=== PATIENT | female | born 1955 | race Caucasian/White ===

== ENCOUNTER 2017-01-28 06:46 | Day surgery (SDC) | payer OTHER ==
--- NOTE | 2017-01-04 07:24 | HP ---
CC: Nadege Sarabia NP * PREOPERATIVE HISTORY AND PHYSICAL: DATE OF ADMISSION: This patient is scheduled for same-day surgery admission by Dr. Carias on 01/28/17. DATE OF PREOPERATIVE HISTORY AND PHYSICAL EXAMINATION: 01/03/17. ATTENDING SURGEON: Dr. Chayito Carias * (dictated by Patrica Ott NP). CHIEF COMPLAINT: Left breast abnormal imaging. HISTORY OF PRESENT ILLNESS: The patient is a 61-year-old female recently evaluated by Dr. Carias for abnormal left breast imaging. The patient was found to have dense breast and advised to alternate mammograms with MRI. She had an MRI in April 2016, which showed a left breast abnormality for which a sonogram was done. This was followed by a sono biopsy for an indeterminate nodule. The biopsy results showed a radial scar and this was thought to be discordant with imaging. Therefore, a followup ultrasound was advised. She had followup ultrasound at the end of November in conjunction with her annual mammogram. This showed stability of the lesion and it has been concluded to be benign. She presented to Dr. Carias for further evaluation and discussion of options. She denies any breast pain. Maternal grandmother had premenopausal breast cancer. Paternal grandmother had "female" cancer. Menarche was at age 10 and she had a hysterectomy at age 24 due to menorrhagia and a history of EHSAN exposure. First delivery at age 22. The patient took control pills for less than 10 years. She has never had radiation to the chest and she has never had a breast biopsy that showed atypical ductal hyperplasia and she did not breastfeed. Dr. Carias examined the patient and discussed the findings with her. The patient is distressed by the uncertainty of this lesion and would like to pursue surgery. Dr. Carias has recommended sonoguided needle localization excision of the left breast sonographic abnormality as a same-day surgery procedure. Dr. Carias discussed the nature of the surgical procedure, the rational for the procedure, the relevant risks and benefits and today I reviewed the typical postoperative care and recovery. The patient has had a chance to ask questions and stated that she understands the information and dissatisfied with the answers given to her questions. She will sign surgical consent on the day of surgery. PAST MEDICAL HISTORY: Generally healthy, no chronic conditions; she had a recent episode of atraumatic back pain and was seen in [facility] on 12/31/16 treated with pain medications and discharged. PAST SURGICAL HISTORY: Right hip replacement in May 2016, left meniscus repair in 2004, hysterectomy in 1980, and tonsillectomy in childhood. MEDICATIONS: 1. Flexeril as needed for back spasm. 2. Oxycodone. 3. Acetaminophen 5/325 and she takes one-half tablet as needed for back pain. ALLERGIES: PROHANCE which is a MRI contrast causes anaphylaxis. FAMILY HISTORY: No known anesthesia complications, bleeding tendencies, or clotting disorders. Maternal grandmother had premenopausal breast cancer. SOCIAL HISTORY: She is and is a retired dental hygienist. She is a nonsmoker, and denies use of alcohol or other substances. REVIEW OF SYSTEMS: Constitutional: No fevers, chills, excessive fatigue, or weight loss. Endocrine: No diabetes; she recently had a thyroid ultrasound ordered by Dr. Carias, which revealed a 4 mm cyst in the lower pole of the left lobe of the thyroid. Hematologic: No easy bruising or bleeding. No history of blood transfusions. No history of deep vein thrombosis or pulmonary embolism. Breasts: Abnormal left breast lesion. Respiratory: No dyspnea on exertion. No chronic cough. Cardiovascular: No anginal chest pain or palpitations. Gastrointestinal: No nausea, vomiting, diarrhea, or constipation. Genitourinary: No dysuria. No hematuria. Musculoskeletal: Recent episode of acute atraumatic back pain improving on muscle relaxers and opioids. Neurologic: No headache or blurred vision or focal weakness or numbness. General: She reports with previous anesthesia, she has been very slow to recover and has required reintubation. PHYSICAL EXAMINATION GENERAL SURVEY: The patient is a 61-year-old female well-developed, well- nourished, in no acute distress. VITAL SIGNS: Height 67 inches, weight 165 pounds, body mass index 25.8. Blood pressure 132/80, pulse 72 and regular, respiratory rate 16, temperature 97.2 tympanic. HEENT: Benign. NECK: Supple. No cervical lymphadenopathy. Thyroid somewhat nodular. No dominant nodules in either lobe. BREASTS: Pale white scar on the upper inner quadrant of the left breast. No palpable masses in either breast. Nipples erect, no nipple discharge. No palpable supraclavicular lymphadenopathy. No palpable axillary lymphadenopathy. LUNGS: Breath sounds bilaterally clear and equal. HEART: Regular rate and rhythm. No murmurs or rubs appreciated. ABDOMEN: Well-healed surgical scars. Active bowel sounds, soft, nontender throughout, nondistended. No obvious masses, organomegaly or evidence of umbilical hernia. PELVIC: Deferred. RECTAL: Deferred. EXTREMITIES: Warm without edema or skin ulcerations. NEUROLOGIC: Alert and oriented x3. Steady gait. SKIN: Warm, dry, and intact. IMPRESSION: Left breast abnormal imaging. PLAN: Same-day surgery admission to Dr. Carias's service on 01/28/17, for sonoguided excision of left breast sonographic abnormality. GOLDY OTT, SCREEN PRINT OPERATOR [id number]/[facility] #: [id number] MTDHazel
[~2017-01-28 06:46] MED LIST: Buffered Lidocaine 0.9% SYRIN* 5 ML/SYR SYRINGE INTRADERM ONE; Famotidine IV* 10 MG/ML 2 ML (20 mg) IV ONE
[2017-01-28] MEDS ORDERED: oxyCODONE/Acetamin 5/325 MG* TAB PO PRN ×2 (06:47→11:27)
[2017-01-28] MEDS ORDERED: PROCHLORPERAZINE INJ 5 MG/ML 2 ML VIAL IV PRN (06:47)
[2017-01-28] MEDS ORDERED: Morphine INJ* 2 MG/ML 1 ML CARPUJECT IV PRN (06:47)
[2017-01-28] MEDS ORDERED: fentaNYL* 50 MCG/ML 2 ML VIAL (100 MCG VIAL) IV PRN (06:47)
[2017-01-28] MEDS ORDERED: Scopolamine 1.5 mg* PATCH TRANSDERM PRN (06:47)
[2017-01-28] MEDS ORDERED: Ondansetron INJ* 2 MG/ML VIAL IV PRN (06:47)
[2017-01-28] MEDS ORDERED: DiMENhydriNATE IV* 50 MG/ML VIAL IV PUSH PRN (06:47)
[2017-01-28] MEDS ORDERED: ceFAZolin 2 GM PREMIX (*) 2 GM/50 ML BAG IVPB ONE (06:58)
[2017-01-28] MEDS ORDERED: Famotidine IV* 10 MG/ML 2 ML (20 mg) ONE (06:58)
[2017-01-28] MEDS ORDERED: Lidocaine 2.5%/Prilocain 2.5%* 5 GM TUBE ONE (06:58)
[2017-01-28] MEDS ORDERED: Buffered Lidocaine 0.9% SYRIN* 5 ML/SYR SYRINGE ONE (06:58)
[2017-01-28] MEDS ORDERED: fentaNYL* 50 MCG/ML 2 ML VIAL (100 MCG VIAL) ONE (09:05)
[2017-01-28] MEDS ORDERED: Midazolam* 1 MG/ML 10 ML VIAL (10 MG) ONE (09:05)
[2017-01-28] MEDS ORDERED: KETAMINE HCL* 50 MG/ML 10 ML VIAL ONE (09:05)
--- NOTE | 2017-01-28 09:29 | RAD ---
INDICATION: Left breast needle localization of a nodule at the 12:00 position. COMPARISON: Correlation is made with a prior ultrasound-guided left breast biopsy from July 28, 2016 and prior mammograms from December 20, 2016 and a left breast ultrasound from December 21, 2016. Correlation is also made with a prior MRI of the breast from May 10, 2016. TECHNIQUE: The benefits and risks of the procedure were explained to the patient. The patient consented to the exam. A timeout was performed before beginning the procedure. Multiple images of the left breast were obtained. Again note is made of a solid nodule at the 12:00 position located approximately 6 cm from the nipple. The patient was prepped and draped in the usual sterile fashion. The left breast was anesthetized with 1% lidocaine. Using ultrasound guidance a needle was placed into the lesion at the 12:00 position. This was exchanged for a Martin type wire. There is no evidence for hematoma on the postprocedure ultrasound. The patient tolerated procedure well without incident. A postprocedure mammogram was obtained with mediolateral and craniocaudad views. The tip of the wire appears to be located adjacent to the localization clip. The results of this exam were discussed with the referring clinician. IMPRESSION: SUCCESSFUL ULTRASOUND-GUIDED LEFT BREAST NEEDLE LOCALIZATION.
[2017-01-28] MEDS ORDERED: Bupivacaine 0.5% SDV PF* 30 ML VIAL ONE (09:43)
[2017-01-28] MEDS ORDERED: Lidocaine 1% INJ* 10 MG/ML 30 ML SDV ONE (09:43)
[2017-01-28] MEDS ORDERED: Dexamethasone IV* 4 MG/ML 1 ML (4 MG) ONE (10:43)
[2017-01-28] MEDS ORDERED: Propofol* 500 MG/50 ML BTL ONE (10:43)
[2017-01-28] MEDS ORDERED: Lidocaine 2% PF * 5 ML VIAL ONE (10:43)
[2017-01-28] MEDS ORDERED: Ondansetron INJ* 2 MG/ML VIAL ONE (10:43)
--- NOTE | 2017-01-28 11:25 | SURGPN ---
Brief Operative Note - Surgery Procedures: Procedures CATARAC PHACOEMULS/ASPIR (02/08/12) CLOSED ENDOSCOPIC BIOPSY OF LARGE INTESTINE (01/03/14) ENDOSC POLYPECTOMY OF LG INTEST (02/27/14) ESOPHAGOGASTRODUODENOSCOPY [EGD] W/CLOSED BIOPSY (06/10/14) INSERT LENS AT CATAR EXT (02/08/12) LAPAROSCOP UNILAT SALPINGO-OOPHORECTOMY (10/28/98) 01/28/17 Op Note (dict'd) Pre-op dx: left breast sonographic abnormality Post-op dx: same Procedure: needle localization excision of left breast sonographic abnormality Surgeon: Jv Asst: none Anesth: local-MAC EBL: 10 cc SCDs on during surgery Abx: given pre-op Pt. tolerated procedure well and was transferred to in a stable condition. CLFoster
[2017-01-28 12:04] VITALS: BP 125/83
--- NOTE | 2017-01-29 06:25 | OP ---
CC: [facility]; Nadege Sarabia NP OPERATIVE SUMMARY: DATE OF OPERATION: 01/28/17 DATE OF : 51 SURGEON: Dr. Carias. DIRECTOR OF SUSTAINABILITY PROGRAMS: There was no automobile mechanic assistant for this case. PRE-OP DIAGNOSIS: Left breast mammographic abnormality. POST-OP DIAGNOSIS: Left breast mammographic abnormality. OPERATIVE PROCEDURE: Needle localization and excision of left breast sonographic abnormality. INDICATIONS: Ms. Noland is a 61-year-old woman who had an abnormality identified on imaging that show ed some irregular tissue in the form of a radial scar. She was uncomfortable with results obtained b y the needle biopsies and elected to undergo a surgical excision. On the morning of surgery, she und erwent needle localization without difficulty and was brought to the operating room. DESCRIPTION OF PROCEDURE: She was placed on the OR table in a supine position and given IV sedation. The left breast was prepped and draped in the usual sterile fashion taking care not to dislodge loc alizing wire. After infiltrating with local anesthetic, a curvilinear elliptical incision was made a round the wire. Subcutaneous tissue was divided with electrocautery to excise the mass of tissue from around the wire. This was removed from the breast, marked in the usual fashion, and handed off as a specimen. The result ultimately came back that it did not contain the clip. Additional tissue was taken from the tip of the wire, again using electrocautery, it was marked in the usual fashion and varela nded off. The report came back regarding this specimen that it did contain the abnormality. Hemostas is was assured with electrocautery. Once this appeared adequate, some additional local was instilled into the wound, no closure was accomplished with 3-0 Vicryl to reapproximate the subcutaneous tissue and the skin was closed with 4-0 Surgipro in a subcuticular fashion. Steri-strips and a dry sterile dressing were applied. All sponge and instrument counts were correct. The patient tolerated the pro cedure well and was transferred to Recovery in a stable condition. [id number]/[facility] #: [id number]
[2017-01-31] MEDS ORDERED: Scopolamine PATCH Remove* 1 NOTE MISC PATCH OFF ONE (06:48)
== END 2017-01-28 11:55 | disposition home or self-care (01) ==
LOC: SDS 06:46
PROVIDERS: ATTEND Surgery
DX: N63.20 Unspecified lump in the left breast, unspecified quadrant (principal); R92.8 Other abnormal and inconclusive findings on diagnostic imaging of breast; R92.0 Mammographic microcalcification found on diagnostic imaging of breast
CPT/HCPCS: 88307; A9270-GY; G0206-LT; J0690; J1100; J2250; J2405; J2704; J3010